=== PATIENT | female | born 1960 | race Caucasian/White ===

== ENCOUNTER 2017-04-17 16:19 | Emergency (ER) | payer BC, OTHER ==
[~2017-04-17] VITALS: Ht 162.6 cm; Wt 115.7 kg
[~2017-04-17 16:19] MED LIST: CETI10TA PO; CRAN450T PO; FIBER CHOICE PO; FISH100035 PO; FLEC50TA PO; GREE315C2 PO; LEVO125T3 PO; Lisinopril/HCTZ PO; MAGO400T PO; METO25TA74 PO; NIAC500T42 PO; OMEP20CA3 PO; VIACCHW PO; VITA500C PO; ZEST1TAB5 PO; [UNRECOGNIZED DRUG - OTHER] OR
[2017-04-17] MEDS ORDERED: LISI10TA4 PO (16:32)
[2017-04-17] MEDS ORDERED: NS 500 ML IV ONE (16:45)
--- NOTE | 2017-04-17 17:05 | REP ---
CT Head without contrast HISTORY: Altered mental status COMPARISON: None There is no intraparenchymal hemorrhage, acute infarct, mass or midline shift. The ventricular system is normal in appearance. There is no extra cerebral collection. There is no fracture. The visualized sinuses are clear. IMPRESSION: There is no intracranial lesion. Signed by Domingo Ha MD 04/17/2017 04:57 P
[2017-04-17 17:41] LABS: BASO # 0.1 K/mm3 (0.0-0.2); EOS # 0.2 K/mm3 (0.0-0.50); EOS % 3.5 % (0.0-3.0); LARGE UNSTAINED CELL # 0.2 K/mm3 (0.0-0.4); LARGE UNSTAINED CELL % 2.4 % (0.0-4.0); LYMPH % 33.1 % (24.0-44.0); MEAN CORPUSCULAR HEMOGLOBIN 30.2 pg (27.0-33.0); MEAN CORPUSCULAR HGB CONC 34.5 g/dl (32.0-36.5); MEAN CORPUSCULAR VOLUME 87.4 fl (80.0-96.0); MONO # 0.3 K/mm3 (0.0-0.8); MONO % 5.6 % (0.0-5.0); NEUTROPHILS # 3.3 K/mm3 (1.8-7.7); NEUTROPHILS % 54.4 % (36.0-66.0); PLATELET COUNT, AUTOMATED 209 k/mm3 (150-450); RED CELL DISTRIBUTION WIDTH 13.1 % (11.5-14.5); WHITE BLOOD COUNT 6.1 K/mm3 (4.0-10.0)
[2017-04-17 17:44] LABS: ALBUMIN 4.1 GM/DL (3.2-5.2); ALBUMIN/GLOBULIN RATIO 1.03 (1.00-1.93); ALKALINE PHOSPHATASE 66 U/L (45-117); ALT/SGPT 60 U/L (12-78); ANION GAP 6 MEQ/L (8-16); AST/SGOT 41 U/L (15-37); BILIRUBIN,DIRECT 0.1 MG/DL (0.0-0.2); BILIRUBIN,TOTAL 0.4 MG/DL (0.2-1.0); BLOOD UREA NITROGEN 14 MG/DL (7-18); CALCIUM LEVEL 9.1 MG/DL (8.5-10.1); CARBON DIOXIDE LEVEL 29 MEQ/L (21-32); CHLORIDE LEVEL 103 MEQ/L (98-107); CREATININE FOR GFR 0.71 MG/DL (0.55-1.02); GLOMERULAR FILTRATION RATE > 60.0 (>51); GLUCOSE, FASTING 87 MG/DL (70-105); POTASSIUM SERUM 4.2 MEQ/L (3.5-5.1); SODIUM LEVEL 138 MEQ/L (136-145); TOTAL PROTEIN 8.1 GM/DL (6.4-8.2)
[2017-04-17] MEDS ORDERED: MECLIZINE 25 MG TABLET PO ONE (18:00)
[2017-04-17] MEDS ORDERED: MECL-68 PO (18:06)
[2017-04-17 18:23] VITALS: BP 174/75
--- NOTE | 2017-04-17 22:11 | ECGEPIP ---
Stationary ECG Study [facility] - ED Test Date: 2017-04-17 Pat Name: SALOMON TUCKER Department: Room: - Gender: F Communication Spec: chelsie : [id number] Requested By: Vanna Dupont Order Number: [id number] Reading MD: Nakul Shah Measurements Intervals [place] Rate: 53 P: -32 NE: 133 QRS: -7 QRSD: 89 T: 9 QT: 409 QTc: 387 Interpretive Statements SINUS BRADYCARDIA MINIMAL VOLTAGE CRITERIA FOR LVH, CONSIDER NORMAL VARIANT SIMILAR TO 05/07/14 Electronically Signed On 04-17-2017 22:11:06 EDT by Nakul Shah
== END 2017-04-17 18:43 | disposition home or self-care (01) ==
LOC: M ED 17:16
DX: R26.89 Other abnormalities of gait and mobility (principal); I10 Essential (primary) hypertension; Z79.899 Other long term (current) drug therapy; Z88.8 Allergy status to other drugs, medicaments and biological substances; Z88.0 Allergy status to penicillin; Z88.2 Allergy status to sulfonamides

== ENCOUNTER → 2018-07-07 | Outpatient (REF) | payer BC ==
[2018-07-07 18:56] LABS: TOTAL PROTEIN 7.5 GM/DL (6.4-8.2)
[2018-07-09 11:49] LABS: ALBUMIN 4.37 GM/DL (3.29-5.55); ALBUMIN % 58.2 % (55.8-66.1); ALPHA-1-GLOBULIN % 4.6 % (2.9-4.9); ALPHA-1-GLOBULINS 0.35 GM/DL (0.17-0.41); ALPHA-2-GLOBULINS 0.76 GM/DL (0.42-0.99); ALPHA-2-GLOBULINS % 10.1 % (7.1-11.8); BETA-1-GLOBULINS % 6.6 % (4.7-7.2); BETA-2-GLOBULINS 0.39 GM/DL (0.19-0.55); BETA-2-GLOBULINS % 5.2 % (3.2-6.5); GAMMA GLOBULIN % 15.3 % (11.1-18.8); GAMMA GLOBULINS 1.15 GM/DL (0.65-1.58)
== END ==
LOC: M LAB REF 17:24
DX: R79.89 Other specified abnormal findings of blood chemistry (principal)
CPT/HCPCS: 84165

== ENCOUNTER → 2019-10-05 | Outpatient (REF) | payer BC ==
[~2019-10-05] MED LIST changes: +FLEC50HA PO; -FLEC50TA PO; +LISI10TA4 PO; +MECL-68 PO; +METO1TAB32 PO; -METO25TA74 PO
== END ==
LOC: M LAB REF 16:31
PROVIDERS: ATTEND Ophthalmology
DX: D23.122 Other benign neoplasm of skin of left lower eyelid, including canthus (principal); D23.112 Other benign neoplasm of skin of right lower eyelid, including canthus

== ENCOUNTER → 2020-11-06 | Outpatient (CLI) | payer SELFPAY ==
[~2020-11-06] MED LIST changes: -MECL-68 PO; +MECL1TAB31 PO
== END ==
LOC: M LABSMTC 09:46
PROVIDERS: ATTEND Pediatrics
DX: Z20.828 Contact with and (suspected) exposure to other viral communicable diseases (principal)

== ENCOUNTER 2023-04-18 07:35 | Day surgery (SDC) | payer BC ==
[~2023-04-18] VITALS: Ht 162.6 cm; Wt 115.6 kg
[~2023-04-18 07:35] MED LIST changes: +CARV6.25 PO; +FLAX1CAP5 PO; +IRON27TA2 PO; +LEVO25TA5 PO; +LIDOCAINE 2% 100MG/5ML SDV (FOR ANES.) As Ordered ONE; +LISI10TA22 PO; -LISI10TA4 PO; +NS 1,000 ML IV ONE; +OMEP1CAP73 PO; +REST0.05 OU; +SEMA2PEN SQ; +VITA100093 PO; +propofoL 200 MG/20 ML VIAL As Ordered ONE
[2023-04-18 09:25] VITALS: BP 146/79
== END 2023-04-18 09:36 | disposition home or self-care (01) ==
LOC: M OPP 07:35
PROVIDERS: ATTEND Internal Medicine Gastroenterology
DX: Z12.11 Encounter for screening for malignant neoplasm of colon (principal); K63.5 Polyp of colon; K57.30 Diverticulosis of large intestine without perforation or abscess without bleeding; K64.4 Residual hemorrhoidal skin tags; K64.8 Other hemorrhoids; Z79.890 Hormone replacement therapy; Z79.899 Other long term (current) drug therapy; Z88.0 Allergy status to penicillin; Z88.2 Allergy status to sulfonamides; Z88.8 Allergy status to other drugs, medicaments and biological substances; Z91.048 Other nonmedicinal substance allergy status

== ENCOUNTER → 2023-08-28 | Outpatient (CLI) | payer BC, MEDICARE ==
[~2023-08-28] MED LIST changes: -LIDOCAINE 2% 100MG/5ML SDV (FOR ANES.) As Ordered ONE; +MECL-209 PO; -MECL1TAB31 PO; -NS 1,000 ML IV ONE; -propofoL 200 MG/20 ML VIAL As Ordered ONE
== END ==
LOC: M WHC 15:41
PROVIDERS: ATTEND Internal Medicine
DX: Z12.31 Encounter for screening mammogram for malignant neoplasm of breast (principal)

== ENCOUNTER → 2023-12-16 | Outpatient (REF) | payer MEDICARE | LOC: M LAB REF 16:15 | PROVIDERS: ATTEND Physician Assistant Medical | DX: N39.0 Urinary tract infection, site not specified (principal) ==

== ENCOUNTER → 2025-03-07 | Outpatient (REF) | payer MEDICARE ==
[2025-03-07 18:04] LABS: MALB URINE SIEMENS < 3.0 MG/L
[2025-03-07 18:05] LABS: CREATININE, URINE 111.5 MG/DL
== END ==
LOC: M LAB REF 16:42
PROVIDERS: ATTEND Internal Medicine
DX: E11.9 Type 2 diabetes mellitus without complications (principal)

== ENCOUNTER → 2025-03-14 | Outpatient (CLI) | payer MEDICARE | LOC: M WHC 15:32 | PROVIDERS: ATTEND Internal Medicine | DX: Z12.31 Encounter for screening mammogram for malignant neoplasm of breast (principal) ==

== ENCOUNTER → 2025-07-11 | Outpatient (CLI) | payer MEDICARE | LOC: M RAD 08:22 | PROVIDERS: ATTEND Internal Medicine | DX: K74.00 Hepatic fibrosis, unspecified (principal); K76.0 Fatty (change of) liver, not elsewhere classified; Q63.1 Lobulated, fused and horseshoe kidney ==

== ENCOUNTER → 2025-09-05 | Outpatient (REF) | payer MEDICARE | LOC: M LAB REF 17:11 | PROVIDERS: ATTEND Internal Medicine | DX: K74.00 Hepatic fibrosis, unspecified (principal) ==

== ENCOUNTER → 2025-11-09 | Outpatient (CLI) | payer MEDICARE | LOC: M RAD 13:04 | PROVIDERS: ATTEND Nurse Practitioner Acute Care | DX: R42 Dizziness and giddiness (principal); I65.23 Occlusion and stenosis of bilateral carotid arteries ==